=== PATIENT | male | born 1955 | race Caucasian/White ===

== ENCOUNTER 2023-06-21 14:06 | Inpatient (IN) ==
[2023-06-21] MEDS ORDERED: NS 0.9% 1000 ml BAG 1,000 ML IV ONE (14:53)
[2023-06-21] MEDS ORDERED: Azithromycin 500 mg/250 ml NS 500 MG/250 ML BAG IVPB ONE (15:15)
[2023-06-21] MEDS ORDERED: cefTRIAXone 1 gm/50 mL D5W 1 GM/50 ML BAG IV ONE (15:15)
[2023-06-21 15:22] LABS: ABS Lymphocytes 0.3 10^3/uL (1.0-4.8); ABS Monocytes 1.1 10^3/uL (0.0-1.1); ABS Neutrophils 9.5 10^3/uL (1.5-7.6); ABS Nucleated RBC 0.01 10^3/ul; Eosinophil % 0.1 %; Hematocrit 38.5 % (38-53); Hemoglobin 13.1 g/dL (13.2-16.3); INR 1.09 (0.83-1.13); Lymphocyte % 2.3 %; Mean Corpuscular Hemoglobin 30.2 pg (27-33); Mean Corpuscular Hgb Conc 34.1 g/dL (31-36); Mean Corpuscular Volume 88.7 fL (80-97); Mean Platelet Volume 7.8 fL (7.5-11.2); Nucleated Red Blood Cells % 0.1 %/100WBC (0.0-0.8); Platelet Count 206 10^3/uL (150-450); Red Blood Count 4.34 10^6/uL (4.06-5.63); Red Cell Distribution Width 14.3 % (12-17); White Blood Count 10.9 10^3/uL (3.6-10.2)
[2023-06-21] MEDS ORDERED: Ondansetron 4 mg VIAL 2 MG/ML 2 ml VIAL IV ONE (15:56)
[2023-06-21 15:57] LABS: ALT 14 U/L (7-52); AST 20 U/L (13-39); Albumin/Globulin Ratio 1.3 (1-3); Alkaline Phosphatase 89 U/L (35-149); Anion Gap 11 mmol/L (2-16); Blood Urea Nitrogen 19 mg/dL (6-24); CO2 Carbon Dioxide 26 mmol/L (22-32); Calcium 9.5 mg/dL (8.6-10.3); Chloride 95 mmol/L (101-111); Creatinine, Serum 0.81 mg/dL (0.67-1.17); Glucose 101 mg/dL (70-100); Lipase < 10 U/L (11.0-82.0); Magnesium 1.6 mg/dL (1.9-2.7); Sodium 132 mmol/L (135-145); Total Bilirubin 0.8 mg/dL (0.2-1.0)
[2023-06-21 16:14] LABS: TSH Ultra Thyroid Stim Horm 1.87 mcIU/mL (0.34-5.60)
[2023-06-21] MEDS ORDERED: Magnesium Sulfate 2 gm BAG 2 GM/50 ML BAG IVPB ONE (16:44)
[2023-06-21] MEDS ORDERED: Metoprolol Tartrate 5 mg VIAL 5 ml VIAL (1 mg/ml) IV PRN (19:02)
[2023-06-21] MEDS ORDERED: MORPHINE 30 MG PO PRN (19:05)
[2023-06-21] MEDS ORDERED: Enoxaparin 40 MG/0.4 ML SYR SUBCUT SCH (20:00)
[2023-06-22] MEDS: Morphine ORAL.SOLN 10 mg 2 mg/ml UDC 5 ml (10 mg) PO PRN ×3 (01:27→21:21)
[2023-06-22 05:50] LABS: Mean Corpuscular Hemoglobin 30.1 pg (27-33); Mean Corpuscular Hgb Conc 34.2 g/dL (31-36); Mean Corpuscular Volume 87.8 fL (80-97); Mean Platelet Volume 8.2 fL (7.5-11.2); Platelet Count 230 10^3/uL (150-450); Red Blood Count 3.65 10^6/uL (4.06-5.63); Red Cell Distribution Width 14.4 % (12-17); White Blood Count 8.6 10^3/uL (3.6-10.2)
[2023-06-22 06:08] LABS: Calcium 8.5 mg/dL (8.6-10.3); Creatinine, Serum 0.74 mg/dL (0.67-1.17); Magnesium 2.1 mg/dL (1.9-2.7); eGFR CKD-EPI 98.7 (>60)
[2023-06-22] MEDS ORDERED: Sulfur Hexaflouride MICROSPHR 25 MG VIAL ONE (11:18)
[2023-06-22 13:49] LABS: Urine Appearance Cloudy; Urine Bilirubin Negative (Negative); Urine Blood Negative (Negative); Urine Color Amber; Urine Glucose Negative (Negative); Urine Ketones Trace (Negative); Urine Nitrite Negative (Negative); Urine Protein 2+(100 mg/dL) (Negative); Urine Specific Gravity 1.023 (1.002-1.030); Urine Urobilinogen Positive (Negative)
[2023-06-22 13:56] LABS: Urine Bacteria 1+ (Absent); Urine Granular Casts Present (Absent); Urine Red Blood Cell 3+(>10/hpf) (Absent); Urine Squamous Epithelial Cell Present (Absent); Urine White Blood Cell Trace(0-5/hpf) (Absent)
[2023-06-22] MEDS ORDERED: cefTRIAXone 1 gm/50 mL D5W 1 GM/50 ML BAG IV SCH (15:00)
[2023-06-22] MEDS ORDERED: Azithromycin 500 mg/250 ml NS 500 MG/250 ML BAG IVPB SCH (16:00)
[2023-06-23] MEDS: Morphine ORAL.SOLN 10 mg 2 mg/ml UDC 5 ml (10 mg) PO PRN (05:57)
[2023-06-23 06:36] VITALS: BP 152/63
== END 2023-06-23 11:50 | disposition home or self-care (01) | DRG 871 ==
LOC: ED 14:06 → EDHOLD 18:07 → MEDTELE 06-22 00:27
PROVIDERS: ADMIT Student in an Organized Health Care Education/Training Program; ATTEND Student in an Organized Health Care Education/Training Program